=== PATIENT | female | born 1950 | race Caucasian/White ===

== ENCOUNTER 2016-09-15 13:47 | Inpatient (IN) | payer OTHER ==
[2016-09-15 14:52] LABS: % IMMATURE GRANULYOCYTES 0.1 % (0.0-1.1); ABSOLUTE IMMATURE GRANULOCYTES 0.01 10^3/uL (0.00-0.10); ADD DIFF? NO; ADD MORPH? NO; ADD SCAN? NO; ATYPICAL LYMPHOCYTE FLAG 10 (0-99); FRAGMENT RBC FLAG 0 (0-99); HEMATOCRIT 38.1 % (38.0-47.0); HEMOGLOBIN 13.4 g/dL (12.6-16.3); LEFT SHIFT FLG 0 (0-99); LIPEMIA HEMOLYSIS FLAG 90 (0-99); MEAN CELL HEMOGLOBIN 32.8 pg (27.9-34.1); MEAN CELL HEMOGLOBIN CONCENTR. 35.2 g/dL (32.4-36.7); MEAN CELL VOLUME 93.4 fL (81.5-99.8); MEAN PLATELET VOLUME 10.4 fL (8.7-11.7); PLATELET CLUMPS FLAG 0 (0-99); PLATELET COUNT 311 10^3/uL (150-400); RED BLOOD CELL COUNT 4.08 10^6/uL (4.18-5.33); RED CELL DISTRIBUTION WIDTH 12.2 % (11.5-15.2)
[2016-09-15 14:59] LABS: ANION GAP 12 mEq/L (8-16); CALCIUM 9.3 mg/dL (8.5-10.4); CARBON DIOXIDE 25 mEq/l (22-31); CHLORIDE 98 mEq/L (97-110); CREATININE 0.5 mg/dL (0.6-1.0); GLOMERULAR FILTRATION RATE > 60; GLUCOSE 98 mg/dL (70-100); SODIUM 135 mEq/L (134-144)
[2016-09-15] MEDS ORDERED: LORazepam 2 MG/ML INJ ONE (15:28)
--- NOTE | 2016-09-15 15:33 | EDPHY ---
HPI/HX/ROS/PE/MDM Narrative: Chief complaint: Headache, hand numbness and weakness. HPI: 66-year-old woman with a past medical history of TIAs, vertebral artery dissection and ischemic bowel has had a headache for the past week. This is been a UA left temporal headache behind her eye. At worst is a 5 on 10, right now is a 2 in 10. She has had headaches in the past associated with her vertebral artery dissection which was diagnosed in 2011, however that headache has been occipital. She has had other prior occipital headaches before. Patient states that she went to exercise class today came home and was preparing her lunch when she lost the ability to coordinate her right hand. She was unable to apple picker a spoon. This occurred at approximately 1:25 p.m. she states that this has resolved in the last 10 or 15 minutes. She has had multiple CT scans evaluating for TIAs in the past all of which have been negative. She is been diagnosed with vertebral artery dissections which Neurology in the past has attributed to being chronic. She has had ischemic colitis in 2004 with no precipitating factors. She is allergic to aspirin and sulfa and ibuprofen. She is currently taking clopidogrel and atorvastatin. Denies any vision changes. No nausea or vomiting. No neck pain or stiffness. No chest pain or shortness of breath. No fevers or chills. ROS: 10 point Review of Systems is negative except as noted in the HPI. Past medical history: Hypertension Asthma Vertebral artery dissection Ischemic bowel Hypothyroidism Medications: Atorvastatin Clopidogrel Hydrochlorothiazide Synthroid Asthma Physical exam: Gen: Awake, Alert, No Distress HEENT: Nose: no rhinorrhea Eyes: PERRLA, EOMI Mouth: Moist mucosa Neck: Supple, no JVD Chest: nontender, lungs clear to auscultation Heart: S1, S2 normal, no murmur Abd: Soft, non-tender, no guarding Back: no CVA tenderness, no midline tenderness Ext: no edema, non-tender Skin: no rash Neuro: CN II-XII intact, Sensation grossly intact, Strength 5/5 in bilateral upper and lower extremities NIH stroke score is 0 ED Course: 66-year-old woman with significant risk factors for CVA and TIA presenting with headache and approximately 45 minutes of right hand discoordination which has since resolved. She has had multiple CT scans of the brain in the past. I have discussed with Dr. Pedro Luis Hernandez, radiologist. He is recommending MRI of her brain at this point. She has not have any symptomatology suggestive of vertebral artery dissection at this time. That is she has no neck pain. No occipital head pain. No discoordination on examination right now. I have discussed with Dr. Kebede, hospitalist. She will admit to her service for further evaluation. Patient is pending MRI. I have paged Neurology for consultation. - Data Points Laboratory Results: Laboratory Results 09/15/16 14:20 09/15/16 14:20 09/15/16 14:20 WBC 7.53 10^3/uL (3.80-9.50) RBC 4.08 L 10^6/uL (4.18-5.33) Hgb 13.4 g/dL (12.6-16.3) Hct 38.1 % (38.0-47.0) MCV 93.4 fL (81.5-99.8) MCH 32.8 pg (27.9-34.1) MCHC 35.2 g/dL (32.4-36.7) RDW 12.2 % (11.5-15.2) Plt Count 311 10^3/uL (150-400) MPV 10.4 fL (8.7-11.7) Neut % (Auto) 62.6 % (39.3-74.2) Lymph % (Auto) 24.3 % (15.0-45.0) Emmet % (Auto) 10.2 % (4.5-13.0) Eos % (Auto) 1.9 % (0.6-7.6) Baso % (Auto) 0.9 % (0.3-1.7) Nucleat RBC Rel Count 0.0 % (0.0-0.2) Absolute Neuts (auto) 4.71 10^3/uL (1.70-6.50) Absolute Lymphs (auto) 1.83 10^3/uL (1.00-3.00) Absolute Monos (auto) 0.77 10^3/uL (0.30-0.80) Absolute Eos (auto) 0.14 10^3/uL (0.03-0.40) Absolute Basos (auto) 0.07 10^3/uL (0.02-0.10) Absolute Nucleated RBC 0.00 10^3/uL (0-0.01) Immature Gran % 0.1 % (0.0-1.1) Immature Gran # 0.01 10^3/uL (0.00-0.10) Sodium 135 mEq/L (134-144) Potassium 4.0 mEq/L (3.5-5.2) Chloride 98 mEq/L (97-110) Carbon Dioxide 25 mEq/l (22-31) Anion Gap 12 mEq/L (8-16) BUN 13 mg/dL (7-23) Creatinine 0.5 L mg/dL (0.6-1.0) Estimated GFR > 60 Glucose 98 mg/dL (70-100) Calcium 9.3 mg/dL (8.5-10.4) General Time Seen by Provider: 09/15/16 14:10 Initial Vital Signs: Initial Vital Signs Temperature (C) 36.3 C 09/15/16 13:50 Heart Rate 110 H 09/15/16 13:50 Respiratory Rate 16 09/15/16 13:50 Blood Pressure 162/99 H 09/15/16 13:50 O2 Sat (%) 94 09/15/16 13:50 O2 Delivery Mode Room Air Allergies/Adverse Reactions: aspirin [Aspirin] Allergy (Intermediate, Verified 12/15/14 13:40) asthma sxs Sulfa (Sulfonamide Antibiotics) Allergy (Mild, Verified 12/15/14 13:40) Rash ibuprofen Allergy (Verified 01/18/15 23:12) Home Medications: Medication Instructions Recorded Albuterol [Proventil Inhaler HFA 1 puffs IH Q4 PRN 07/20/13 (*)] Clopidogrel Bisulfate [Plavix (*)] 75 mg PO DAILY 07/20/13 Benazepril/Hydrochlorothiazide 1 each PO DAILY 07/21/13 [Benazepril-Hctz 20-25 mg Tab] Fluticasone Nasal [Flonase Nasal 1 - 2 sprays EACHNARE BID 12/15/14 [facility]] Fexofenadine HCl [Stacy Allergy] 60 mg PO DAILY PRN 01/18/15 Pseudoephedrine HCl [Sudafed 30mg 30 mg PO DAILY PRN 01/18/15 (OTC)] Risedronate Sodium [Atelvia] 35 mg PO TH@0600 01/18/15 Thyroid [[place] Thyroid 60 MG (*)] 30 mg PO DAILY06 01/18/15 Thyroid,Pork [ARMOUR THYROID] 15 mg PO DAILY06 01/18/15 Acyclovir [Acyclovir] 400 mg PO DAILY 09/15/16 Atorvastatin Calcium [Atorvastatin 10 mg PO DAILY 09/15/16 Calcium] Fluticasone/Salmeter 500/50Mcg 1 puffs IH BID 09/15/16 [Advair 500/50 (*)] LORAZEPAM [LORAZEPAM] 1 mg PO HS PRN 09/15/16 Valacyclovir HCl [Valacyclovir] 1,000 mg PO DAILY PRN 09/15/16 Departure - Departure Disposition: [facility] Clinical Impression: Transient cerebral ischemia Condition: Fair
[2016-09-15] MEDS ORDERED: LORazepam 2 MG/ML INJ IVP ONE (15:39)
[2016-09-15] MEDS ORDERED: GADOBUTROL 10 ML VIAL IVP ONE (16:21)
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
[2016-09-15] MEDS ORDERED: ONDANSETRON 4 MG/2 ML VIAL IVP PRN (17:58)
[2016-09-15] MEDS ORDERED: NON-FORMULARY NEW DRUG (Fexofenadine Hcl [Allegra Allergy] 60 MG) PO PRN (17:59)
[2016-09-15] MEDS ORDERED: PSEUDOEPHEDRINE HCL 30 MG TAB PO PRN (17:59)
[2016-09-15] MEDS ORDERED: MDI IH PRN (17:59)
[2016-09-15] MEDS ORDERED: ALBUTEROL IH PRN (17:59)
[2016-09-15] MEDS ORDERED: CETIRIZINE 10 MG TAB PO PRN (18:28)
[2016-09-15] MEDS ORDERED: valACYclovir 500 MG TAB PO PRN (18:30)
[2016-09-15 20:04] LABS: COLOR YELLOW; LEUKOCYTE ESTERASE,URINE NEGATIVE (NEGATIVE); NITRITE,URINE NEGATIVE (NEGATIVE)
--- NOTE | 2016-09-15 20:42 | HOSPPROG ---
Hospitalist Progress Note Assessment/Plan: ADDENDUM to H&P MRI showed very large subdural hematoma. I spoke with Dr. Felix with NSGY. They will see patient in morning since no neuro compromise -repeat CT w/o cont in morning -dose Tranexamic acid 650mg BID -no Plavix or anticoagulants -q2 neuro checks. -will contact NSGY overnight if any changes Objective: Vital Signs Temp Pulse Resp BP Pulse Ox 37.2 C 91 16 140/88 H 92 09/15/16 19:37 09/15/16 19:37 09/15/16 19:37 09/15/16 19:37 09/15/16 19:37 09/14/16 09/15/16 09/16/16 05:59 05:59 05:59 Intake Total 395 Balance 395 ICD10 Worksheet Patient Problems: Problems Problem Status Diagnosed Transient cerebral ischemia Acute Ataxia due to recent stroke Acute Hemiparesis Acute Posterior circulation stroke Acute Vertebral artery dissection Acute Abdominal apoplexy Chronic Chronic ischemic left MCA stroke Chronic
[2016-09-15] MEDS: FLUTICASONE/SALMETER 500/50MCG DISKUS IH SCH (22:34)
[2016-09-15] MEDS: FLUTICASONE NASAL 120 SPRAYS/16 GM MDI EACHNARE SCH (22:35)
[2016-09-15] MEDS: TRANEXAMIC ACID 650 MG TAB PO SCH (22:38)
[2016-09-15] MEDS: LORazepam 1 MG TAB PO PRN (23:46)
[2016-09-16] MEDS: THYROID 30 MG TABLET PO SCH (05:34)
[2016-09-16] MEDS: ACETAMINOPHEN 325 MG TAB PO PRN ×2 (05:41→20:15)
[2016-09-16 05:47] LABS: ANION GAP 8 mEq/L (8-16); CALCIUM 9.1 mg/dL (8.5-10.4); CARBON DIOXIDE 27 mEq/l (22-31); CHLORIDE 99 mEq/L (97-110); CHOLESTEROL 170 mg/dL (140-220); CHOLESTEROL/HDL RATIO 2.74 RATIO (1.00-4.44); CREATININE 0.5 mg/dL (0.6-1.0); GLOMERULAR FILTRATION RATE > 60; GLUCOSE 94 mg/dL (70-100); HIGH DENSITY LIPOPROTEIN 62 mg/dL (40-85); LDL/HDL RATIO 1.53 RATIO (1.00-3.22); LOW DENSITY LIPOPROTEIN 95 mg/dL (80-100); NON-HIGH DENSITY LIPOPROTEIN 108 mg/dL (90-129); POTASSIUM 3.9 mEq/L (3.5-5.2); SODIUM 134 mEq/L (134-144); TRIGLYCERIDE 65 mg/dL (35-135); VERY LOW DENSITY LIPOPROTEINS 13 mg/dL (8-25)
[2016-09-16] MEDS ORDERED: RISEDRONATE SODIUM 35 MG PO SCH (06:00)
[2016-09-16] MEDS ORDERED: NON-FORMULARY NEW DRUG (Thyroid,Pork [Armour Thyroid] 15 MG) PO SCH (06:00)
[2016-09-16] MEDS ORDERED: THYROID PORK 15 MG PO SCH (06:00)
[2016-09-16] MEDS: FLUTICASONE NASAL 120 SPRAYS/16 GM MDI EACHNARE SCH ×2 (08:14→20:16)
[2016-09-16] MEDS: FLUTICASONE/SALMETER 500/50MCG DISKUS IH SCH ×2 (08:14→20:16)
[2016-09-16] MEDS: ACYCLOVIR 400 MG TAB PO SCH (08:15)
[2016-09-16] MEDS: TRANEXAMIC ACID 650 MG TAB PO SCH ×2 (08:15→20:15)
[2016-09-16] MEDS: ATORVASTATIN CALCIUM 10 MG TAB PO SCH (08:15)
[2016-09-16] MEDS: BENAZEPRIL PO SCH (08:18)
[2016-09-16] MEDS: HYDROCHLOROTHIAZIDE PO SCH (08:18)
[2016-09-16] MEDS: HYDROCHLOROTHIAZIDE 25 MG TAB PO SCH (08:18)
--- NOTE | 2016-09-16 08:55 | GCON ---
[f rep st] CONSULTATION NEUROLOGIC CONSULTATION. REFERRING PHYSICIAN: Dr. Kebede HISTORY: The patient is a 66-year-old woman who I am asked to see in neurologic consultation regardi ng some acute neurologic symptoms. She came to the hospital yesterday. She has been found to have a large subdural hematoma and Neurosurgery is aware of this and is evaluating her this morning. I have previously seen the patient when she was hospitalized in 2012. She had come to the hospital june of that year with a report of having a left middle cerebral artery stroke in 1996 and had a history of variable headaches. At that time, she had a CT angiogram that showed suspected dissecti on or significant stenosis of bilateral vertebral arteries. She had an MRI at that time that did not show evidence of stroke. On subsequent evaluations she has had repeat angiograms and the feeling is these anomalies may or may not represent old dissections versus congenital anomalies or kinks in tho se vessels. She has had repeat brain imaging that has included a brain MRI in March 2014, at which time there was no evidence of old or new stroke. The most recent CT angiogram of the neck in November 28 noted no changes compared to 2012. These same anomalies are noted and described as a stable "kin k" in the right and left vertebral arteries. The patient has remained on Plavix for prophylaxis of p ossible stroke given some of the uncertainty of the vascular anomalies. However, she had a new set o f symptoms develop yesterday. She has been doing well. She started having some left temporal headac he and right-sided weakness. She is describing an aching headache for about a week on the left side. Pain is 3 to 4/10 with some intensity when she coughs or bending over or sneezing. She felt a charly le off balance when she was walking today. She noticed trouble with use of the right hand and it fel t a little bit numb. After being admitted, MRI revealed a large left subdural hematoma without significant mass effect. A gain, Neurosurgery has been consulted and is monitoring. Her Plavix was discontinued and she has rem ained neurologically stable. PAST MEDICAL HISTORY: Notable for hypothyroidism, asthma, colitis, hypertension. FAMILY HISTORY: Noncontributory. SOCIAL HISTORY: No smoking, alcohol abuse, or drug use. MEDICATIONS: Valacyclovir, thyroid, Atelvia, Sudafed, lorazepam as needed, Advair, Plavix, atorvasta tin. ALLERGIES: Aspirin and sulfa. REVIEW OF SYSTEMS: A 10-point review of systems unremarkable except for that noted above. PHYSICAL EXAMINATION: VITAL SIGNS: Blood pressure has been stable in the 120-130 range systolic, pu lse of 80, respirations 16, temperature 36.9. GENERAL: She is well developed, in no acute distress. EYES: Clear. NECK: Supple with no bruits or masses. CARDIAC: Regular rate and rhythm. No murm ur. EXTREMITIES: No cyanosis or edema. NEUROLOGIC: She is awake, alert and attentive with clear f luent speech. She is oriented to person, place, and time and general situation. She has good recent and remote memory, as well as concentration, attention and general fund of knowledge. Pupils are 3 mm and reactive. Fundi are unremarkable. No visual field loss. Extraocular movements are intact. Normal facial sensation and strength. Palate elevates symmetrically and tongue protrudes midline. H earing is preserved. No weakness with head turning or shoulder shrug. On motor exam, she has normal muscle bulk and tone with 5/5 strength and no abnormal movements. Sensation is preserved for temper ature and light touch. No ataxic movements in the upper extremities. Reflexes are brisk but symmetr ic without Babinski signs. I have reviewed the brain MRI and see the large left subdural hematoma as described. LABORATORY STUDIES: Unremarkable in terms of CBC. Electrolytes are normal. LDL cholesterol 95. IMPRESSION: The patient has a history of clinical stroke many years ago, although MRI findings do no t show evidence of old or any new strokes. She has had some repeated imaging over the years without evidence of stroke showing. Her CT angiogram over 3 years ago showed changes suspicious for possible vertebral artery dissections, but subsequent CT angiograms have shown uncertain changes, representin g either healed dissections, which are stable, or congenital anomalies. In any case, she has been tr eated with anti-platelet therapy and statin therapy to minimize risk of stroke given some of the unce rtainty. At this point, she now has a large left subdural hematoma, which is not causing acute, irasema re shift, but is a dangerous finding and will need to be closely monitored. Plavix has been disconti nued. We will have to reassess whether antiplatelet therapy in the future will be appropriate, but i t would most likely be a change to baby aspirin. She will need to stay off this until it completely heals. Neurosurgery will make the determination as to whether she needs drainage of the subdural hem atoma, and I suspect they will do serial studies if they do not do any acute intervention now. /[id number]/MODL
[2016-09-16] MEDS ORDERED: NON-FORMULARY NEW DRUG (Benazepril/Hydrochlorothiazide [Benazepril-Hctz 20-25 Mg Tab] 1 EA PO SCH (09:00)
[2016-09-16] MEDS ORDERED: CLOPIDOGREL BISULFATE 75 MG TAB PO SCH (09:00)
[2016-09-16] MEDS ORDERED: BENAZEPRIL HCL 20 MG TAB PO SCH (09:00)
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
--- NOTE | 2016-09-16 10:41 | CT ---
CT Scan of the Head (Without Contrast) Clinical History: 66-year-old female admitted last evening with cephalgia and right hand weakness, no w presenting for follow-up of a subdural hematoma. Rule out acute intracranial abnormality. Technique: Axial unenhanced images were obtained from the vertex through the skull base, reformatted at 5.00 and 1.50 mm increments, and reviewed in bone, brain, and subdural windows. Images were repro cessed in parasagittal and paracoronal planes. Dose reduction techniques were utilized. Comparison Studies: Unenhanced CT scan of the brain, dated December 15, 2014, and MR imaging of the brai n dated September 15, 2016. Findings: There is a crescentic, predominantly hypodense extra-axial fluid collection (with some serp entine-shaped areas of increased attenuation), consistent with a variably-aged extra-axial hematoma, likely within the subdural space of the superior left frontoparietal region. This measures 9.7 x 2.3 cm (transverse diameter) x 1.5 cm (cephalocaudal diameter), and previously measured 9.9 x 2.2 x 1.5 c m (my retrospective measurements) on last evening's study. There is some mild effacement of the ipsil ateral sulci; however, there is no significant subfalcine shift. The ventricles and basilar cisterns are normal in size and symmetrical in configuration. There is some mural atherosclerotic calcificatio n the cavernous carotid arteries with some mild vertebrobasilar artery ectasia. The brainstem and cer ebellum appear normal. The mastoids are patent. There is near-complete pansinusitis, which was also p resent on the November 2014 CT exam, and is very similar in distribution. The craniocervical junction, s leonid turcica, pineal gland, and the orbits are within normal limits. There is no evidence of a skull fracture. Impression: 1. Stable appearance of a variably-aged left superior frontoparietal extra-axial collection, likely w ithin the subdural space, unchanged in size and configuration from the evening of September 15, 2016. 2. Chronic pansinusitis.
--- NOTE | 2016-09-16 13:59 | MR ---
MRI of the Head (Before and Following Gadolinium) Clinical Indications: Headache. Right hand weakness. Technique: T1-weighted images were obtained sagittally and axially. Diffusion-weighted, inversion r ecovery, and fast T2-weighted axial images were obtained. T1-weighted axial and coronal images were obtained after intravenous administration of 4.5 mL of Gadavist. Comparison examination: April 13, 2014. Findings: Moderate size left parietal subdural hematoma is identified over the parietal convexity, m easuring 1.5 cm in width and 10 cm in AP dimensions, with mild mass effect on the left parietal zev x, which demonstrates mild FLAIR hyperintensity. This finding is new from prior examination, and ther e is mild associated subarachnoid edema over the left parietal region. No evidence of midline shift. Lateral ventricles are appropriate in size and shape. Craniocervical junction appears unremarkable. After intravenous contrast administration, there is thickening and enhancement of the meninges over t he left parietal region. No evidence of enhancing mass. Carotid and vertebrobasilar flow voids are present. Craniocervical junction is normal. There is mucosal thickening in the maxillary sinuses bilaterally compatible with chronic paranasal si nus disease. Impression: Moderate-sized left parietal subdural hematoma. Preliminary results called to Dr. West by Dr. Dave at 1926 hours.
--- NOTE | 2016-09-16 15:33 | HOSPPROG ---
Hospitalist Progress Note Assessment/Plan: 66-year-old female presents emergency room with complaints of mild headache and right hand weakness. This is my 1st encounter with the patient, chart reviewed. Patient discussed with the nurse. # subdural hematoma Stable per CT Appreciate neurosurgery consult Repeat CT of the head today per Neurosurgery Continue PT OT speech therapy # history of hypothyroid Continue medications # weakness PT OT # headache Mild # disposition DC home when cleared by Neurosurgery Will require CT scan in the outpatient setting in 2-3 weeks Continue outpatient support with physical therapy, occupational therapy and speech therapy Subjective: Up in the chair. No specific complaints currently. Sister at bedside. Working with therapy. Objective: Vital Signs Temp Pulse Resp BP Pulse Ox 36.9 C 97 18 113/69 94 09/16/16 12:00 09/16/16 12:00 09/16/16 12:00 09/16/16 12:00 09/16/16 12:00 Laboratory Results 09/16/16 04:27 09/15/16 09/16/16 09/17/16 05:59 05:59 05:59 Intake Total 895 Output Total 600 Balance 295 - Physical Exam Constitutional: appears nourished, not in pain, chronically ill appearing Eyes: PERRL, anicteric sclera, EOMI Ears, Nose, Mouth, Throat: moist mucous membranes, hearing normal, ears appear normal Cardiovascular: regular rate and rhythym, No JVD, No edema Respiratory: no respiratory distress, no rales or rhonchi, reduced air movement Gastrointestinal: normoactive bowel sounds, No tenderness, No ascites Skin: warm, normal color, No erythema Musculoskeletal: normal joint ROM, no joint effusions, generalized weakness Neurologic: AAOx3 Psychiatric: not anxious, not encephalopathic, thought process linear ICD10 Worksheet Patient Problems: Problems Problem Status Diagnosed Transient cerebral ischemia Acute Ataxia due to recent stroke Acute Hemiparesis Acute Posterior circulation stroke Acute Vertebral artery dissection Acute Abdominal apoplexy Chronic Chronic ischemic left MCA stroke Chronic
[2016-09-16] MEDS ORDERED: oxyCODONE IR 5 MG TAB PO PRN (21:15)
[2016-09-16] MEDS: LORazepam 1 MG TAB PO PRN (22:23)
[2016-09-16 23:32] VITALS: O2SAT 91
[2016-09-17] MEDS: THYROID 30 MG TABLET PO SCH (05:10)
[2016-09-17 05:14] VITALS: TEMP 98.4
[2016-09-17 08:04] VITALS: BP 133/71; PULSE 88; RESP 20
[2016-09-17] MEDS: HYDROCHLOROTHIAZIDE PO SCH (08:13)
[2016-09-17] MEDS: ATORVASTATIN CALCIUM 10 MG TAB PO SCH (08:13)
[2016-09-17] MEDS: TRANEXAMIC ACID 650 MG TAB PO SCH (08:13)
[2016-09-17] MEDS: BENAZEPRIL PO SCH (08:13)
[2016-09-17] MEDS: FLUTICASONE NASAL 120 SPRAYS/16 GM MDI EACHNARE SCH (08:14)
[2016-09-17] MEDS: FLUTICASONE/SALMETER 500/50MCG DISKUS IH SCH (08:14)
[2016-09-17] MEDS: HYDROCHLOROTHIAZIDE 25 MG TAB PO SCH (08:15)
[2016-09-17] MEDS: ACYCLOVIR 400 MG TAB PO SCH (08:15)
--- NOTE | 2016-09-17 09:12 | CT ---
CT Brain (Without Contrast) at 0837 Hours History: Left frontoparietal complex subdural hematoma follow up. Comparison: September 16, 2016 Technique: Axial computed tomographic images of the brain without contrast. Dose reduction technique s were utilized. Findings: Left frontoparietal complex multidensity subdural hematoma measuring 15 mm in thickness on the coronal series and 10 cm in AP dimension along the superolateral convexity appearing unchanged si nce yesterday with predominantly areas of decreased density but scattered areas of hyperdensity consi stent with acute, subacute and chronic age. Partial effacement of adjacent sulci without midline shif t or herniation. No hydrocephalus. No new foci of acute hemorrhage. Cerebrovascular atherosclerotic c alcifications in bilateral cavernous internal carotid arteries. Severe bilateral frontal, ethmoid, sp henoid and maxillary sinusitis. No definite acute infarct. IMPRESSION: 1. Mixed density age left frontoparietal convexity subdural hematoma appears stable since yesterday m easuring up to 15 mm in thickness. 2. Severe sinusitis. 3. No midline shift, herniation or hydrocephalus. 4. Cerebrovascular atherosclerosis.
--- NOTE | 2016-09-17 09:22 | NEUROPROG ---
Assessment: Stable left subdural hematoma with serial scans. 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 We talked about anticonvulsants but will not add at this time. She can go home with outpatient follow up from my perspective as long as neurosurgery agrees. Subjective: Pt reports increased headache hours ago and another CT head was obtain. She also reports episodes of right side paresthesias in the arm and sometimes the leg. She had an episode with uncontrolled movement of the right arm for several seconds. Objective: Vital Signs Temp Pulse Resp BP Pulse Ox 36.9 C 88 20 133/71 H 91 L 09/17/16 05:13 09/17/16 08:00 09/17/16 08:00 09/17/16 08:15 09/17/16 08:00 Laboratory Results 09/16/16 04:27 09/16/16 09/17/16 09/18/16 05:59 05:59 05:59 Intake Total 895 1200 Output Total 600 Balance 295 1200 Unremarkable. I reviewed the Head CT and it looks about the same to me. Allergies/Adverse Reactions: aspirin [Aspirin] Allergy (Intermediate, Verified 12/15/14 13:40) asthma sxs Sulfa (Sulfonamide Antibiotics) Allergy (Mild, Verified 12/15/14 13:40) Rash ibuprofen Allergy (Verified 01/18/15 23:12)
[2016-09-17] MEDS: ACETAMINOPHEN 325 MG TAB PO PRN (12:56)
--- NOTE | 2016-09-18 02:22 | GDS ---
[f rep st] DISCHARGE SUMMARY DISCHARGE DIAGNOSIS: Subdural hematoma. CONSULTATIONS: 1. Neurosurgery. 2. Neurology. STUDIES AND PROCEDURES DONE: 1. MRI of the brain. 2. CT of the head. 3. Repeat CT of the head. PHYSICAL EXAM: GENERAL: The patient is alert and oriented, in no acute distress. VITAL SIGNS: Afe brile 36.9, pulse is 86, respiratory rate 14, blood pressure is 133/71. She is saturating 91% on bhumika m air. I have seen and evaluated the patient on the day of discharge. HOSPITAL COURSE: The patient is a 66-year-old female, who presented to the emergency room with compl aints of mild headache and right hand weakness. She was evaluated and diagnosed with a subdural janelle leonel. During this hospitalization she received a consultation from Neurosurgery as well as Neurology . She was placed on tranexamic acid. Repeat CT scans were performed to assure stability of her ble eding. Her Plavix was discontinued. She was consulted on by physical therapy, as well as occupation al therapy and speech therapy. All deemed her to be appropriate for disposition. I have encouraged the patient to follow up with her primary care physician to be evaluated for potential underlying vas cularity disease as well as possible autoimmune disorder. The patient is in agreement with this. The patient was discharged home independently with the followup plan to see Dr. Saldana as well as Neurosurgery. She will have a repeat CT scan of her head in 2-3 weeks with Neurosurgery, Dr. Galdino Herrera son as well as followup with Dr. Saldana, the neurologist. She will also follow up with her primar care physician, Dr. Du Valencia. DISCHARGE MEDICATIONS: Please refer to the EMR form. I have provided the patient a prescription for tranexamic acid as well as Ativan. There are no pending studies. I have educated the patient at length prior to disposition that she sh ould return to the emergency room if she develops any signs of complication including significant hea dache, nausea, vomiting, increased weakness or other signs of neurological changes. She and her doctors hospitalt er both agree to this and feel safe with the plan for disposition I have spent greater than 35 minute s in the care, coordination, and management of this patient's discharge. /[id number]/MODL
== END 2016-09-17 13:25 | disposition home or self-care (01) | DRG 66 ==
LOC: F3N 17:27
PROVIDERS: ADMIT Internal Medicine; ATTEND Internal Medicine
DX: I62.00 Nontraumatic subdural hemorrhage, unspecified (principal); I10 Essential (primary) hypertension; J45.909 Unspecified asthma, uncomplicated; E03.9 Hypothyroidism, unspecified; K58.9 Irritable bowel syndrome, unspecified; Z86.73 Personal history of transient ischemic attack (TIA), and cerebral infarction without residual deficits
CPT/HCPCS: 92610-GN; 96374; 97161-GP; 97165-GO; A9585; G8978-GP-CH; G8979-GP-CH; G8980-GP-CH; G8987-GO-CI; G8988-GO-CI; G8996-GN-CH; G8997-GN-CH; G8998-GN-CH

== ENCOUNTER → 2016-10-07 | Outpatient (CLI) | payer OTHER ==
--- NOTE | 2016-10-07 10:53 | CT ---
CT Scan of the Head (Without Contrast) Clinical History: 66-year-old female with history of a nontraumatic left frontoparietal complex subdu ral hematoma, presenting for follow-up. ICD 10 Diagnostic Code: I 62.00. Technique: Axial unenhanced images were obtained from the vertex through the skull base, reformatted at 5.00 and 1.25 mm increments, and reviewed in bone, brain, and subdural windows. Images were repro cessed in parasagittal and paracoronal planes. Dose reduction techniques were utilized. Comparison Study: Unenhanced CT scan of the brain, dated 09/17/2016. Findings: Again noted is a crescentic left superior frontoparietal variably-aged subdural hematoma, m easuring 9.2 x 1.5 cm (axial diameter) x 1.0 cm (cephalocaudal diameter). As a point of reference, th is previously measured 9.7 x 2.3 x 1.5 cm. It contains areas of diminished attenuation as well as luis e peripheral serpentine-shaped areas of increased attenuation. There is some persistent though less p ronounced effacement of the ipsilateral sulci. There is no contralateral hemispheric hemorrhage. Kendy t bilateral basal ganglia calcification is noted. The infratentorial structures are normal. The ventr icles and basilar cisterns are normal in size, and symmetrical in configuration. There is no midline shift, or other new evidence of mass effect. The mastoids are patent. There is chronic mucosal thick ening involving the maxillary, ethmoid, sphenoid, and frontal sinuses, similar in distribution. The c raniocervical junction, sella turcica, pineal gland, and the orbits are within normal limits. There i s some atherosclerotic calcification of the cavernous carotid arteries, and some vertebral basilar ec amador. There is no evidence of a skull fracture. Impression: 1. Slight interval decrease in the size of the variably-aged left superior frontoparietal subdural he matoma, compared to 09/17/2016. 2. Chronic pansinusitis, unchanged. If there is further clinical concern regarding the patient's symptoms, MR imaging is suggested, if no t otherwise contraindicated.
== END ==
LOC: FIMAGING 08:55
PROVIDERS: ATTEND Neurological Surgery
DX: I62.00 Nontraumatic subdural hemorrhage, unspecified (principal); J32.4 Chronic pansinusitis

== ENCOUNTER → 2016-11-08 | Outpatient (CLI) | payer OTHER | LOC: FIMAGING 10:52 | PROVIDERS: ATTEND Physician Assistant | DX: I62.03 Nontraumatic chronic subdural hemorrhage (principal); J01.40 Acute pansinusitis, unspecified ==

== ENCOUNTER → 2018-08-25 | Outpatient (CLI) | payer OTHER ==
[~2018-08-25] MED LIST: GADOBUTROL 10 ML VIAL IVP ONE
== END ==
LOC: FIMAGING 11:29
PROVIDERS: ATTEND Psychiatry & Neurology Neurology
DX: J32.0 Chronic maxillary sinusitis (principal); R51 Headache
CPT/HCPCS: 70544; 70549; 70551; A9585; 82565-PO

== ENCOUNTER → 2018-10-05 | Outpatient (CLI) | payer OTHER | LOC: FIMAGING 09:24 | PROVIDERS: ATTEND Internal Medicine Endocrinology, Diabetes & Metabolism | DX: Z13.820 Encounter for screening for osteoporosis (principal); M81.0 Age-related osteoporosis without current pathological fracture; Z78.0 Asymptomatic menopausal state ==

== ENCOUNTER → 2018-10-10 | Outpatient (CLI) | payer OTHER | LOC: FIMAGING 08:09 | PROVIDERS: ATTEND Psychiatry & Neurology Neurology | DX: I77.3 Arterial fibromuscular dysplasia (principal) | CPT/HCPCS: A9585; C8902; C8918; 82565-PO ==

== ENCOUNTER → 2018-10-20 | Outpatient (CLI) | payer OTHER | LOC: FIMAGING 06:46 | PROVIDERS: ATTEND Psychiatry & Neurology Neurology | DX: I77.3 Arterial fibromuscular dysplasia (principal) | CPT/HCPCS: A9585; C8909 ==

== ENCOUNTER → 2018-11-27 | Outpatient (CLI) | payer OTHER | LOC: BMCIMAGING 13:41 | PROVIDERS: ATTEND Family Medicine | DX: S22.31XA Fracture of one rib, right side, initial encounter for closed fracture (principal) | CPT/HCPCS: 71101-PO ==